=== PATIENT | male | born 1935 | race Caucasian/White ===

== ENCOUNTER 2018-02-03 13:07 | Outpatient (CLI) | payer MEDICARE, OTHER ==
[~2018-02-03 13:07] MED LIST: Gadobenate Dimeglumine 529 MG/1 ML (20ML VIAL) ONE
--- NOTE | 2018-02-03 15:27 | MRI ---
MRI OF THE BRAIN: History: History of thyroid cancer with memory loss. Technique: Multiplanar, multisequence MRI images were obtained of the brain without and with contrast . FINDINGS: There are numerous scattered foci of high T2/FLAIR signal in the subcortical and periventricular whit e matter, likely secondary to small vessel ischemic disease. No restricted diffusion is seen to sugge st an acute infarction. No abnormal intracranial enhancement is seen. There is no evidence of hydrocephalus, intracranial hemorrhage, or extraaxial fluid collection. The c orpus callosum, pituitary and craniocervical junction are unremarkable. The expected flow voids are p resent. The calvarium and overlying soft tissues are unremarkable. The visualized paranasal sinuses and masto id air cells are well aerated. IMPRESSION: Extensive small vessel ischemic disease without acute intracranial abnormality. POS: [facility]
== END 2018-02-03 13:08 | disposition home or self-care (01) ==
LOC: SCSMRI 13:07
PROVIDERS: ATTEND Psychiatry & Neurology Neurology
DX: G94 Other disorders of brain in diseases classified elsewhere (principal); I67.82 Cerebral ischemia
CPT/HCPCS: 70553; 82565; A9579

== ENCOUNTER 2019-03-30 09:47 | Outpatient (CLI) | payer MEDICARE, OTHER | END 2019-03-30 09:48 | disposition home or self-care (01) | PROVIDERS: ATTEND Nurse Practitioner Family | DX: R13.12 Dysphagia, oropharyngeal phase (principal); R63.3 Feeding difficulties ==